=== PATIENT | male | born 1975 | race Caucasian/White ===

== ENCOUNTER 2024-01-25 09:45 | Emergency (ER) | payer SELFPAY ==
[2024-01-25 10:01] VITALS: BP 112/62; PULSE 74; TEMP 36.6; O2SAT 98
[2024-01-25 10:36] LABS: Basophils # 0.1 10^3/uL (0.0-0.1); Basophils % 0.7 %; Eosinophils # 0.2 10^3/uL (0.0-0.8); Eosinophils % 1.6 %; Hematocrit 47.3 % (37-53); Lymphocytes # 2.5 10^3/uL (0.8-4.8); Lymphocytes % 21.6 %; Mean Corpuscular HGB Conc 33.6 g/dL (30-55); Mean Corpuscular Hemoglobin 32.6 pg (27-33); Mean Corpuscular Volume 96.9 fl (82-101); Mean Platelet Volume 10.5 fL (7.4-10.4); Monocytes # 0.8 10^3/uL (0.2-0.9); Monocytes % 6.6 %; Neutrophils # 7.99 10^3/uL (1.8-7.7); Neutrophils % 69.1 %; Nucleated Red Blood Cells % 0 %; Platelet Count 298 10^3/cmm (157-399); Red Blood Count 4.88 10^6/uL (3.85-5.65); Red Cell Distribution Width 13.2 % (12.1-15.1); White Blood Count 11.55 10^3/uL (3.29-11.43)
--- NOTE | 2024-01-25 10:54 | CT_ITS ---
WS: [id number] CT ABDOMEN PELVIS TECHNIQUE: Contrast-enhanced CT of the abdomen and pelvis with coronal and sagittal reformatted image s. CLINICAL INFORMATION: llq pain COMPARISON: None. DLP: 869.[address] scans at [facility] use at least one of these dose optimization techniques: automated e xposure control; mA and/or kV adjustment per patient size (includes targeted exams where dose is matc hed to clinical indication); or iterative reconstruction. FINDINGS: Lung bases are well aerated. Normal liver. Normal spleen. Small esophageal hiatal hernia. Normal panc reas. Normal portal vein and splenic vein. Celiac and SMA are patent. Normal caliber abdominal aorta. Mild aortic calcification. Adrenal glands are normal. Normal renal parenchymal enhancement. No hydro nephrosis. Normal sigmoid colon. Normal appendix in the RIGHT lower quadrant. No evidence of small or large jennifer l obstruction. No free fluid in the abdomen or pelvis. No other acute findings. CT/CT abdomen pelvis w con* [id number] IMPRESSION: 1. Normal appendix. 2. Sigmoid colon is normal in appearance. 3. No evidence of small or large bowel obstruction. 4. No other acute findings.
--- NOTE | 2024-01-25 10:55 | ED_ITS ---
HPI - Abdominal Pain 2 General: Chief Complaint: Abdominal Pain Stated Complaint: passing blood, abd pain, nausea Time Seen by Provider: 01/25/24 10:13 Source: patient Mode of arrival: ambulatory Limitations: no limitations History of Present Illness: 48-year-old male states he has been havi ng left lower quadrant pain over the last few days also has been having some bright red blood in his stool he states he had a history of diverticulitis and polyps and has had similar symptoms in the past denies any large amount of bleeding denies any black stools. He had no vomiting. Associated Symptoms: Denies chills, diarrhea, fever(s), nausea and vomiting Review of Systems 2 Const: Denies: fever(s), chills, body aches or change in appetite ENMT: Denies: throat pain or dental pain Card: Denies: chest pain Resp: Denies: dyspnea GI: Reports: abdominal pain; Denies: nausea, vomiting or diarrhea Musc: Denies: neck pain or back pain Skin/Breast: Denies: rash Neuro: Denies: headache(s) Physical Exam 2 Const: COMMON NORMALS: no acute distress, patient oriented x3 and healthy appearing HENMT: COMMON NORMALS: normocephalic and atraumatic HEAD & SCALP: n ormocephalic and atraumatic Neck/C-Spine: COMMON NORMALS: full ROM and supple Chest: COMMONS NORMALS: normal inspection of the chest Resp: COMMON NORMALS: normal respiratory effort, No retractions, No use of accessory muscles and clear to auscultation bilaterally AUSCULTATION: clear to auscultation bilaterally Cardio: COMMON NORMALS: regular rate, regular rhythm and No murmurs present (Cardio) RATE: regular rate RHYTHM: regular rhythm GI: COMMON NORMALS: Normal to inspection, nondistended, normoactive bowel sounds present, Soft to palpation and no masses PALPATION: Yes Soft to palpation and Yes Tenderness to palpation present (GI) Details: LLQ Extremity: COMMON NORMALS: normal to inspection and full ROM Neuro: COMMON NORMALS: patient oriented x3, moves all extremities and no focal motor deficits Psych: COMMON NORMALS: mental status grossly normal, Normal thought process present and cooperative THOUGHT PROCESS: Normal thought process present Skin: COMMON NORMALS: no rashes or lesions noted and no wounds GENERAL SKIN EXAM: no rashes or lesions noted Course 2 Vital Signs: Vital signs: Vital Signs Temperature 97.9 F 01/25/24 10:01 Pulse Rate 74 01/25/24 10:01 Blood Pressure 112/62 01/25/24 10:01 Pulse Oximetry 98 01/25/24 10:01 Oxygen Delivery Me thod Room Air 01/25/24 10:01 MDM - Abdominal Pain Medical Decision Making Patient presents here with some abdominal pain also with blood in his stool CT shows no signs of diverticulitis we will get him set up with surgery as he likely needs a colonoscopy. Patient stable for discharge at this time he has no signs of infection he is return if worsening. Medical Records I reviewed the patient's medical records. Lab Data I reviewed the patient's lab results. 01/25/24 10:23 01/25/24 10:23 Labs/Radiology: Radiology Impressions Abdomen/Pelvis CT 01/25/24 10:54 IMPRESSION: 1. Normal appendix. 2. Sigmoid colon is normal in appearance. 3. No evidence of small or large bowel obstruction. 4. No other acute findings. Laboratory Results WBC 11.55 10^3/uL (3.29-11.43) H 01/25/24 10:23 RBC 4.88 10^6/uL (3.85-5.65) 01/25/24 10:23 Hgb 15.90 g/dL (11.27-16.99) 01/25/24 10:23 Hct 47.3 % (37-53) 01/25/24 10:23 MCV 96.9 fl (82-101) 01/25/24 10:23 MCH 32.6 pg (27-33) 01/25/24 10:23 MCHC 33.6 g/dL (30-55) 01/25/24 10:23 RDW 13.2 % (12.1-15.1) 01/25/24 10:23 Plt Count 298 10^3/cmm (157-399) 01/25/24 10:23 MPV 10.5 fL (7.4-10.4) H 01/25/24 10:23 Neut % (Auto) 69.1 % 01/25/24 10:23 Lymph % (Auto) 21.6 % 01/25/24 10:23 Villalba % (Auto) 6.6 % 01/25/24 10:23 Eos % (Auto) 1.6 % 01/25/24 10:23 Baso % (Auto) 0.7 % 01/25/24 10:23 Neut # (Auto) 7.99 10^3/uL (1.8-7.7) H 01/25/24 10:23 Lymph # (Auto) 2.5 10^3/uL (0.8-4.8) 01/25/24 10:23 Villalba # (Auto) 0.8 10^3/uL (0.2-0.9) 01/25/24 10:23 Eos # (Auto) 0.2 10^3/uL (0.0-0.8) 01/25/24 10:23 Baso # (Auto) 0.1 10^3/uL (0.0-0.1) 01/25/24 10:23 Nucleated RBC % (auto) 0 % 01/25/24 10:23 Nucleated RBCs # 0.0 /100WBC 01/25/24 10:23 Sodium 137 mmol/L (136-145) 01/25/24 10:23 Potassium 4.9 mmol/L (3.5-5.1) 01/25/24 10:23 Chloride 103 mmol/L (98-107) 01/25/24 10:23 Carbon Dioxide 21 mmol/L (22-29) L 01/25/24 10:23 Anion Gap 17.9 (5-19) 01/25/24 10:23 BUN 17 mg/dL (6-20) 01/25/24 10:23 Creatinine 1.0 mg/dL (0.7-1.2) 01/25/24 10:23 GFR Calculation 79.8 mL/min (90-130) L 01/25/24 10:23 Glucose 100 mg/dL (65-115) 01/25/24 10:23 Calculated Osmolality 286 mOsm/kg (285-295) 01/25/24 10:23 Calcium 9.0 mg/dL (8.5-10.5) 01/25/24 10:23 Total Bilirubin 0.4 mg/dL (0.15-1.2) 01/25/24 10:23 AST 11 U/L (0-40) 01/25/24 10:23 ALT 13 U/L (0-41) 01/25/24 10:23 Alkaline Phosphatase 94 U/L (40-130) 01/25/24 10:23 Total Protein 7.1 g/dL (6.6-8.7) 01/25/24 10:23 Albumin 4.2 g/dL (3.5-5.2) 01/25/24 10:23 Globulin 2.9 g/dL (1.3-4.6) 01/25/24 10:23 Lipase 21 U/L (13-60) 01/25/24 10:23 All radiology interpretation(s) finalized by discharge Discharge Plan Discharge Patient Disposition: Home Clinical Impression: Abdominal pain, GI bleed Condition: Stable Prescriptions: New hydrocodone-acetaminophen 5-325 mg tablet 1 tab PO Q6H PRN (Reason: pain) Qty: 14 0RF ondansetron 4 mg tablet,disintegrating 4 mg PO Q6H PRN (Reason: nausea and vomiting) Qty: 14 0RF No Action metronidazole 250 mg tablet 250 mg PO QID ciprofloxacin HCl 500 mg tablet 500 mg PO BID Discharge Orders: Discharge ED (Routine); Ordered 01/25/24 Ordered By: Linus Quintanilla Referrals: Duong Garcia DO [Physician] - 1-3 days Discharge Activity: Resume usual activity Patient Instructions: Rectal Bleeding (ED), Abdominal Pain (ED) Coding Level of Care Code ED Ballistics Tester for Joy Mayorga
[2024-01-25 11:00] LABS: Alanine Aminotransferase 13 U/L (0-41); Albumin Level 4.2 g/dL (3.5-5.2); Alkaline Phosphatase 94 U/L (40-130); Anion Gap 17.9 (5-19); Aspartate Amino Transferase 11 U/L (0-40); Blood Urea Nitrogen 17 mg/dL (6-20); Carbon Dioxide 21 mmol/L (22-29); Chloride 103 mmol/L (98-107); Creatinine Clr Calc Pharmacy 117.2698; Globulin 2.9 g/dL (1.3-4.6); Glomerular Filtration Rate 79.8 mL/min (90-130); Glucose 100 mg/dL (65-115); Lipase 21 U/L (13-60); Osmolality Calculated 286 mOsm/kg (285-295); Potassium 4.9 mmol/L (3.5-5.1); Sodium 137 mmol/L (136-145); Total Bilirubin 0.4 mg/dL (0.15-1.2); Total Protein 7.1 g/dL (6.6-8.7)
[2024-01-25] MEDS: sodium chloride 0.9% 1,000 ML 999 ML IV (11:02)
[2024-01-25] MEDS: morphine 4 mg/mL SDV 1 mL IVP (11:04)
[2024-01-25] MEDS: ondansetron 2 mg/ML SDV 2 mL 4 MG IVP (11:05)
[2024-01-25] MEDS: iohexol 350 mg/mL 500 mL Btl (per mL) IV (11:18)
[2024-01-25 12:01] VITALS: BP 140/90; PULSE 67; O2SAT 100
--- NOTE | 2024-01-26 07:24 | DCPLANNER ---
message sent to gen surg for er f/u
== END 2024-01-25 12:02 | disposition home or self-care (01) ==
PROVIDERS: Emergency Provider Emergency Medicine
DX: R10.32 Left lower quadrant pain (principal); K92.2 Gastrointestinal hemorrhage, unspecified
CPT/HCPCS: 36415; 74177; 80053; 83690; 85025; 96361; 96374; 96375; 99285; J2270; J2405; J7030; Q9967

== ENCOUNTER 2024-11-29 17:16 | Emergency (ER) | payer OTHER, SELFPAY ==
--- NOTE | 2024-11-29 17:17 | XRR_ITS ---
PROCEDURE INFORMATION: Exam: XR Left Hip Exam date and time: 11/29/2024 6:18 PM Age: 49 years old Clinical indication: C/O left hip pain. History of siatica; Additional info: Fall TECHNIQUE: Imaging protocol: Radiologic exam of the left hip. Views: 2 or 3 views hip with pelvis when performed. COMPARISON: CT abdomen pelvis w con* [id number] 01/25/2024 11:16 AM FINDINGS: Bones/joints: Unremarkable. No acute fracture. Soft tissues: Unremarkable. XR/XR hip LT 2-3V wo/w pel* [id number] IMPRESSION: No acute findings.
[2024-11-29 17:29] VITALS: BP 109/73; PULSE 89; RESP 18; TEMP 36.9; O2SAT 98; BMI 29.8
--- NOTE | 2024-11-29 17:48 | ED_ITS ---
HPI - Extremity Problem 2 General: Chief complaint: Extremity Problem,Nontraumatic Stated complaint: left side hip to ankle pain Time Seen by Provider: 11/29/24 17:43 History of Present Illness: Selected Entries 11/29/24 17:29 ED Triage Comment Pt arrives with c/ o left leg pain. P t stated 2.5 month s ago he injuried sciatic nerver. Pt stated he bent ov er to pick sometin g up and felt some thing pop in his l ower back and now has pain that radi ates down his left leg. Pt stated he has been using hi s jetted tube with hot water to help relieve his pain. Pt stated he has been seen by pain clinic and had not jaimie done. Patient is a 49-year-old male presents to ED with left hip pain. As noted per triage, patient does confirm this started 2-1/2 months ago after he was helping move some material for a friend of his. He stated that his twisting and bending may have started the issue. This has worsened over time. He was waiting to get into [facility], which he did this Monday, 4 days ago, however they needed an MRI to proceed/treat his pain. He states now he is having to sit to urinate, can barely ambulate, and is sleeping 15-60 minutes at a time due to pain. The pain is in his left SI, and radiates to left hip, and laterally down T-band to knee, then some from knee to lateral ankle Associated symptoms: Deny chest pain or fever(s) Related Data Home Medications ?Medication ?Instructions ?Recorded ?Confirmed ciprofloxacin HCl 500 mg tablet 500 mg PO BID 01/25/24 01/25/24 metronidazole 250 mg tablet 250 mg PO QID 01/25/24 Previous Rx's ?Medication ?Instructions ?Recorded hydrocodone 5 mg-acetaminophen 325 1 tab PO Q6H PRN pa in #14 tabs 01/25/24 mg tablet ondansetron 4 mg disintegrating 4 mg PO Q6H PRN nausea and 01/25/24 tablet vomiting #14 tabs celecoxib 200 mg capsule (Celebrex) 200 mg PO DAILY #3 0 caps 11/29/24 cyclobenzaprine 10 mg tablet 10 mg PO BID PRN muscle s pasm #20 11/29/24 tabs methylprednisolone 4 mg tablets in See Rx Instructions PO .COMPLEX 11/29/24 a dose pack (Medrol (Miah)) #21 ea Allergies Allergy/AdvReac Type Severity Reaction Status Date / Time No Known Allergies Allergy Verified 01/25/24 10:07 Review of Systems 2 General: Reports: 10 or more systems reviewed and unremarkable except in HPI and below Const: Denies: fever(s) or chills ENMT: Denies: throat pain Card: Denies: chest pain or palpitations Resp: Denies: dyspnea or productive cough GI: Denies: abdominal pain, nausea or vomiting : Denies: flank pain or difficulty urinating Musc: Denies: neck pain or back pain Neuro: Denies: headache(s) or dizziness Psych: Denies: anxiety or depression Physical Exam 2 Const: COMMON NORMALS: patient oriented x3 and alert HENMT: COMMON NORMALS: not normocephalic HEAD & SCALP: not normocephalic Lymph: LYMPHATIC: no lymphadenopathy noted Chest: COMMONS NORMALS: normal inspection of the chest Resp: COMMON NORMALS: normal respiratory effort EFFORT & INSPECTION: Yes able to speak in complete sentences Cardio: COMMON NORMALS: S1 normal heart sound present and S2 normal heart sound present HEART SOUNDS: S1 normal heart sound present and S2 normal heart sound present GI: COMMON NORMALS: Normal to inspection, nondistended, normoactive bowel sounds present and Soft to palpation PALPATION: Yes Soft to palpation : COMMON NORMALS: Yes no CVA tenderness BLADDER/KIDNEY EXAM: Yes no CVA tenderness Back/Pelvis: COMMON NORMALS: no CVA tenderness THORACIC SPINE/UPPER BACK: Y es thoracic ROM normal LUMBAR SPINE/LOWER BACK: Yes ROM limited (due to left si pain), Yes pain with ROM, No lumbar spinal tenderness, No paraspinal muscle tenderness, No paraspinal muscle spasm, Yes straight leg raise positive left and Yes bend over test abnormal PELVIS: Yes sciatic notch tenderness on the left COCCYX: no swelling and no tenderness BACK IMAGE (MALE): 1. pain/tenderness Extremity: COMMON NORMALS: normal to inspection; negative for full ROM (decreased to LLE due to pain with SI joint left) Neuro: COMMON NORMALS: patient oriented x3, CN's II-XII intact bilaterally and no sensory deficits noted SENSORIUM/ORIENTATION: Yes alert Psych: COMMON NORMALS: mental status grossly normal and Normal thought process present THOUGHT PROCESS: Normal thought process present Skin: COMMON NORMALS: no rashes or lesions noted and no wounds GENERAL SKIN EXAM: no rashes or lesions noted Course 2 Vital Signs: Vital signs: Vital Signs Temperature 98.4 F 11/29/24 17:29 Pulse Rate 89 11/29/24 17:29 Respiratory Rate 18 11/29/24 17:29 Blood Pressure 109/73 11/29/24 17:29 Pulse Oximetry 98 11/29/24 17:29 Oxygen Delivery Me thod Room Air 11/29/24 17:29 MDM - Extremity (Nontraumatic) Medical Decision Making Patient is a pleasant 49-year-old gentleman without injury started having pain about 2-1/2 months ago. His pain was relieved with jetted bath time, which patient has been utilizing for self-care at home. He was awaiting getting into [facility] at [place], however getting into a [facility] pain management 4 days ago, he found out he could not be treated until further diagnostic studies were done, which patient is acceptable to this, however has continued to suffer, and is now having such difficulty with ambulation due to pain, he is sitting to void. He does not have any numbness in his groin, inability to void, or have a BM. Will obtain routine x-ray of the left hip, and provide patient with relief with Toradol, dexamethasone, and Norflex. Lab Data Radiology Impressions Hip/Pelvis X-Ray 11/29/24 17:17 IMPRESSION: No acute findings. All radiology interpretation(s) finalized by discharge ED provider radiology interpretation(s): no acute findings Discharge Plan Discharge Patient Disposition: Home Condition: Stable Prescriptions: New methylprednisolone [Medrol (Miah)] 4 mg tablets,dose pack See Rx Instructions .ROUTE .COMPLEX Qty: 21 0RF Rx Instructions: for 6 days celecoxib [Celebrex] 200 mg capsule 200 mg PO DAILY Qty: 30 0RF cyclobenzaprine 10 mg tablet 10 mg PO BID PRN (Reason: muscle spasm) Qty: 20 0RF No Action metronidazole 250 mg tablet 250 mg PO QID ciprofloxacin HCl 500 mg tablet 500 mg PO BID hydrocodone-acetaminophen 5-325 mg tablet 1 tab PO Q6H PRN (Reason: pain) Qty: 14 0RF ondansetron 4 mg tablet,disintegrating 4 mg PO Q6H PRN (Reason: nausea and vomiting) Qty: 14 0RF Discharge Orders: Discharge ED (Routine); Ordered 11/29/24 Ordered By: Isabella Munguia Discharge Diet: Usual diet Discharge Activity: Increase activity as tolerated Patient Instructions: Sciatica (ED), Lumbar Radiculopathy (ED), Lower Back Exercises (ED), Opioid Safety, Pain Management Activity Restrictions/Additional Instructions: You may utilize ice to low back. Return to ED for ongoing, worsening pain, or numbness to groin, or inability to urinate/bowel movement No [id number] NSAIDs that includes naproxen, aspirin, ibuprofen, BC powder. You may take ibuprofen. Your celecoxib that is a prescription takes the place of [id number] NSAIDs. Return to your primary care physician on Monday?call for appointment for follow- up. Return to ED if you have further issues as described above. Print Language: [place] Coding Level of Care Code ED Hopper Attendant for Joy Mayorga
[2024-11-29] MEDS: orphenadrine 30 mg/mL Inj 2 mL 60 MG IM (18:13)
[2024-11-29] MEDS: dexamethasone 10 mg/mL INJ IM (18:13)
[2024-11-29] MEDS: ketorolac 30 mg/mL INJ 10 MG IM (18:13)
[2024-11-29] MEDS: oxyCODONE-APAP 10-325 mg Tablet 1 TAB PO (19:19)
== END 2024-11-29 19:24 | disposition home or self-care (01) ==
PROVIDERS: Emergency Provider Physician Assistant
DX: M25.552 Pain in left hip (principal); Z79.899 Other long term (current) drug therapy
CPT/HCPCS: 73502; 96372; 99284; J1100; J1885; J2360; J9999